=== PATIENT | female | born 1940 | race Caucasian/White ===

== ENCOUNTER 2016-11-02 08:14 | Inpatient (IN) | payer MEDICARE, OTHER ==
--- NOTE | ~2016-11-02 | CN ---
Consultation Report [facility] [address] [place]. [address] NAME: SABINA YBARRA : 40 STATUS : ADM IN PAT#: [id number] AGE: 76 ADM/REG DATE : 11/02/16 MR#: [id number] REPORT SERV DATE: 11/06/16 DICTATED BY: SEAN CALIXTO DATE: 11/06/16 REPORT STATUS : Draft TRANSCRIBED BY: MODL DATE: 11/06/16 CONSULTATION NOTE DATE OF CONSULTATION: 11/06/2016 REASON FOR CONSULTATION: Severe aortic stenosis, consideration for aortic valve replacement, either transcatheter or conventional surgical aortic valve replacement. CHIEF COMPLAINT: "I had bleeding and then got very short of breath and had to go to the hospital." HISTORY OF PRESENT ILLNESS: This is a 76-year-old white female, with known history of bright red blood per rectum on several occasions, starting in 2010. At that time, in 02/2011, she also had an echocardiogram that showed aortic stenosis with an aortic valve area of 0.8 sq cm. She was followed and has been seen by various providers for her GI bleeding since then. 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 Recently, she had recurrence of her bleeding associated with profound anemia, transfusion, and subsequent shortness of breath and symptoms of heart failure, diagnosed as high-output heart failure. She was transfused, and then readmitted to the hospital with shortness of breath. Her BNP at that time was 640 and her EKG showed normal sinus rhythm. She did have mild troponin leak. For this reason, she underwent coronary arteriogram and this did not demonstrate any significant flow-limiting coronary artery disease. It was felt that she had not had a myocardial infarction. She did have on cath significant aortic stenosis with an aortic valve area of 6-7 sq cm and peak gradient of 50 mmHg. We were asked to see for possible aortic valve replacement. The patient's , who is now , had also undergone aortic valve replacement, and suffered acute kidney injury eventually necessitating dialysis. The patient has significant anxiety about this. She had proposed possible transcatheter aortic valve replacement, but using Society of Thoracic Surgeons database, her operative mortality calculated by Dr. Meehan came to approximately 2.7%. I saw her and examined her today and talked with her about possible aortic valve replacement, both transcatheter, and surgical aortic valve replacement. PRIOR MEDICAL HISTORY: 1. GI bleeding and arteriovenous malformations. 2. Aortic stenosis. 3. Colitis. 4. Dyslipidemia. 5. Hypertension. 6. Former smoker approximately 50 years, one-half pack per day, quit three months ago. 7. She has a history of depression, anxiety, and cataracts. Consultation Report [facility] [address] [place]. [address] NAME: SABINA YBARRA : 40 STATUS : ADM IN [facility]#: [id number] AGE: 76 ADM/REG DATE : 11/02/16 MR#: [id number] REPORT SERV DATE: 11/06/16 DICTATED BY: SEAN CALIXTO DATE: 11/06/16 REPORT STATUS : Draft TRANSCRIBED BY: DAWNA DATE: 11/06/16 PRIOR SURGICAL HISTORY: Significant for hysterectomy, tonsillectomy, cataract excision and intraocular lens, right foot hammertoe correction. ALLERGIES: SIGNIFICANT FOR LEVAQUIN, WHICH CAUSES AGITATION AND ANXIETY. MEDICATIONS: Taken at home include: Elavil 25 mg p.o. at bedtime, amlodipine 5 mg p.o. daily, enteric-coated aspirin 81 mg q.72 h., atorvastatin 20 mg p.o. at bedtime, Caltrate 600 Plus D p.o. b.i.d., folic acid 400 mcg p.o. daily, pantoprazole 40 mg p.o. daily, Zoloft 50 mg p.o. daily, and iron supplement one capsule p.o. b.i.d. SOCIAL HISTORY: She is , lives alone and has two adult daughters and adult son who live fairly locally. She quit smoking approximately three months ago after smoking since age 17 up to one-half pack per day. She reports occasional mixed drinks one or two a week when out with friends. Denies any history of illicit drug use. FAMILY HISTORY: She was adopted. REVIEW OF SYSTEMS: GENERAL: Positive for declining exercise tolerance and progressive breathlessness over the past five months. ENT: Positive for cataract surgery, no issues with hearing, no issues with eating, chewing, or swallowing. RESPIRATORY: Positive for recent shortness of breath and hospitalization for same. Denies any chronic cough, wheezing, or other lung problems. CV: Positive for aortic valve stenosis, negative for palpitations, negative for syncope or near syncope, negative for chest pain, positive for lower extremity edema, which cleared with diuretic therapy. GI: Positive for AVMs, bright red blood of stool, negative for constipation or diarrhea. : Negative. MUSCULOSKELETAL: Positive for some arthritic changes and stiffness in fingers. NEUROLOGIC: Negative for stroke, TIA, syncope, tremors. HEME/ONC: Negative. ENDOCRINE: Negative for diabetes. Negative for thyroid problems. No history of blood clots or free bleeding. PHYSICAL EXAMINATION: GENERAL: She is a very pleasant, vivacious 76-year-old female, in no acute distress. VITAL SIGNS: Her height is 152.4 cm, weight 67.78 kg. Blood pressure 105/53, temperature 97.6, pulse 65 and regular, respirations 18, regular and unlabored, saturation 99% on room air. HEENT: Normocephalic, atraumatic. Hygiene is good. Pupils equal, round, reactive to light and accommodation, sclerae are clear, conjunctivae pink. Oral and buccal mucosae pink and moist, teeth in good condition. NECK: Supple. No restricted range of motion, carotid bruits versus radiated murmur are Consultation Report [facility] [id number] [place]. [address] NAME: SABINA YBARRA : 40 STATUS : ADM IN [facility]#: [id number] AGE: 76 ADM/REG DATE : 11/02/16 MR#: [id number] REPORT SERV DATE: 11/06/16 DICTATED BY: SEAN CALIXTO DATE: 11/06/16 REPORT STATUS : Draft TRANSCRIBED BY: DAWNA DATE: 11/06/16 heard. No jugular venous distention. CHEST: Clear to auscultation, no use of accessory muscles, no deformity, no chest wall tenderness. BREASTS: Not examined. CV: Regular rate and rhythm with aortic systolic murmur that is heard across the precordium, but best in the right sternal border second intercostal space. She has palpable and symmetric central and peripheral pulses. No clubbing, no cyanosis, no edema. ABDOMEN: Soft, obese, nontender with normoactive bowel sounds. No hepatosplenomegaly. MUSCULOSKELETAL: No kyphoscoliosis, no asymmetry. /RECTAL: Declined. NEUROLOGIC: She is alert and oriented to day, date, place, and situation. Speech is clear, fluent. No focal deficits. No tremors. SKIN, HAIR, AND NAILS: Good hygiene. Skin is tanned and sun damaged. DATA: Her coronary arteriogram that did not show any significant flow-limiting disease. Echocardiogram showing no other significant valvulopathy, but severe aortic stenosis. Her coronary arteriogram showed aortic valve area calculated at 0.6% to 0.7%. EKG showed normal sinus rhythm. LABORATORY DATA: Sodium is 139, potassium 4.0, chloride 104, CO2 of 30, BUN 18, creatinine 1.14. CBC shows WBCs of 5.1, hemoglobin 8.8 g, hematocrit 31.1%, and platelets 255,000. IMPRESSION: Severe aortic valve stenosis in a fairly healthy 76-year-old female. She had recent high-output heart failure, and in discussion with Dr. Meehan today, it was felt that this really was not consistent with NYHA classification of heart failure. With her recent transfusions and diuretic therapy, she now is asymptomatic and feels quite well. I talked with her today about possible aortic valve replacement either via the transcatheter route or conventional or minimally invasive sternotomy approach. Her operative mortality risk calculated by Dr. Meehan was 2.7%, which does not approach the threshold for high-risk SAVR. Therefore, we talked with her about possible conventional or minimally invasive sternotomy aortic valve replacement. We talked about the usual perioperative course, indications, benefits, and serious risks, which include things like bleeding, infection, pneumonia, blood transfusions, damage to the kidneys including kidney failure and dialysis, damage to the liver, the lungs, heart attack, stroke, abnormal heart rhythm, mediastinitis, and even . She indicates her understanding and would like to get this done and put it behind her as soon as possible and begin the process of recovery. She will need someone to be with her for the first two weeks after surgery, either staying with her or she can stay with them, and she understands that this is going to be arranged. In talking with Dr. Odonnell and Dr. Meehan, it was felt that she could safely go home, and come back to the hospital next Saturday, one week from now, for elective aortic valve replacement. This will be helpful also in reducing her surgical risk. She is agreeable to this plan. I have discussed this with Dr. Frank from the hospitalist service. We will take care of arrangements for preadmission testing and plan to proceed with elective aortic valve replacement next Saturday. We appreciate the opportunity to participate in her care. Consultation Report [facility] [id number] [place]. [address] NAME: SABINA YBARRA : 40 STATUS : ADM IN PAT#: [id number] AGE: 76 ADM/REG DATE : 11/02/16 MR#: [id number] REPORT SERV DATE: 11/06/16 DICTATED BY: SEAN CALIXTO DATE: 11/06/16 REPORT STATUS : Draft TRANSCRIBED BY: MODL DATE: 11/06/16 MSL/MODL Sean Calixto, N.P. / [id number] CC: Johnathon Frank Jr, MD Mario Mariani, M.D.
--- NOTE | ~2016-11-02 | DS ---
Discharge Summary [facility] [address] [place]. [address] NAME: SABINA YBARRA : 40 STATUS : DIS IN PAT#: [id number] AGE: 76 ADM/REG DATE : 11/02/16 MR#: [id number] REPORT SERV DATE: 11/08/16 DICTATED BY: JR. FRANK WILLIAM JOHN DATE: 11/07/16 REPORT STATUS : Draft TRANSCRIBED BY: DAWNA DATE: 11/07/16 ADMISSION DATE: 11/02/2016 DISCHARGE DATE: 11/07/2016 DISCHARGE DIAGNOSES: Include. 1. Severe aortic stenosis with an aortic valve area 0.6 cm2. 2. 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 3. Chronic anemia. 4. Diastolic dysfunction. OPERATIONS, PROCEDURES, AND TREATMENTS: Include. 1. Carotid blood flow study done 11/05/2016, which showed right and left carotids with category 1 disease. There is bilateral antegrade vertebral flow. 2. PA and lateral chest x-ray done 11/05/2016, showed no acute process. 3. Cardiac catheterization done 11/02/2016 which showed severe aortic stenosis with aortic valve area between 0.6-0.7 cm2 with a gradient of 50 mmHg. There was no angiographic evidence of epidural coronary heart disease. There was normal intracardiac filling pressures and normal pulmonary pressure. DISCHARGE MEDICATIONS: Include. 1. Elavil 25 mg at bedtime. 2. Norvasc 5 mg orally daily. 3. Aspirin 81 mg orally every 72 hours which will be held for surgery. 4. Lipitor 20 mg orally daily. 5. Calcium plus D one tablet twice a day. 6. Folate 400 mg orally daily. 7. Lasix 40 mg in the morning and 20 mg at night. 8. Protonix 40 mg daily. 9. Zoloft 50 mg orally daily. 10.Beto-Sequels 1 capsule twice a day. CONSULTING PHYSICIANS: Include Dr. Odonnell of Thoracic Surgery and Dr. Joe of Cardiology. HOSPITAL COURSE: The patient is a 76-year-old female, presented to [facility] on 11/01/2016. The patient had recently been hospitalized for GI bleed, where she was found to have severe aortic stenosis by echocardiogram and was scheduled to follow up with her primary physician anesthesiologist, Dr. Mehean, the following week. However, she re-presented to [facility] with complaint of shortness of breath and lower extremity edema. The patient was seen in consultation by Dr. Joe and recommendation was transferred to [facility] for workup of severe aortic stenosis. The patient was transferred to [facility] on 11/02/2016. She was seen in consultation by Dr. Mendoza and underwent cardiac catheterization with findings above. The patient was felt to be a candidate either for transaortic valve replacement versus traditional aortic valve replacement. She was seen in consultation by Dr. Odonnell's team and was felt to be a good candidate for traditional valve replacement. Preoperative workup including carotid flow study was performed, and the patient is scheduled for a valve replacement on Saturday of the upcoming week. The patient is comfortable with Discharge Summary [address] [place]. [address] NAME: SABINA YBARRA : 40 STATUS : DIS IN PAT#: [id number] AGE: 76 ADM/REG DATE : 11/02/16 MR#: [id number] REPORT SERV DATE: 11/08/16 DICTATED BY: JR. FRANK WILLIAM JOHN DATE: 11/07/16 REPORT STATUS : Draft TRANSCRIBED BY: DAWNA DATE: 11/07/16 this. She will be discharged on Lasix 40 mg the morning, 20 in the evening and will follow up on Saturday as scheduled. DIET: Diet will be upon 0.6 L fluid restriction. With low sodium. ACTIVITY: As tolerated. For discharge exam and laboratory, please see daily progress note. This discharge took 35 minutes for patient encounter, coordination care, and documentation. WDeonteF/DAWNA Johnathon Frank Jr, MD / [id number] CC: Johnathon Frank Jr, MD Mario Mariani, M.D.
[~2016-11-02 08:14] MED LIST: ACET500CAP PO; ALEVE220 MG PO; AMIT25 PO; AMITRIPTYLINE; ASAB PO; CALTRA600D PO; COUMADIN4 MG PO; COUMADIN6 MG PO; CYANO1000T PO; DRONED400 PO; ESTRACE1 MG PO; FERRO SEQUELS PO; FOLIC ACID400 MC1 PO; GLUCCHONDR PO; HALF81 PO; IRON PO; L20 PO; LAN25 PO; LIMBITROL1 TAB PO; LIPITOR20 PO; MULTIVITAMI1 PO; NORV5 PO; PRIN20 PO; PROTONIX PO; TOPXL100 PO; TUMSROLL PO; VITAMIN C100 MG PO; VITAMIN D1000 UNI1 PO; ZESTRIL20 MG PO; ZOCOR20 PO; ZOCOR40 PO; ZOL50 PO
[2016-11-03 05:41] LABS: BASOPHILS 0.5 %; BASOPHILS ABSOLUTE 0.03 10/3/uL (0.0-0.16); EOSINOPHILS 2.9 %; EOSINOPHILS ABSOLUTE 0.17 10/3/uL (0.0-0.53); HEMATOCRIT 27.7 % (36.0-48.0); HEMOGLOBIN 8.3 g/dL (12.0-16.0); IMMATURE GRANULOCYTES 0.2 %; IMMATURE GRANULOCYTES ABSOLUTE 0.01 10/3/uL (0.0-0.11); LYMPHOCYTES 22.1 %; LYMPHOCYTES ABSOLUTE 1.29 10/3/uL (0.67-4.30); MEAN CORPUSCULAR HEMOGLOB 24.2 pg (26.0-34.0); MEAN CORPUSCULAR VOLUME 80.8 fL (80-100); MEAN PLATELET VOLUME 9.5 fL (9.2-13.0); MONOCYTES 9.7 %; MONOCYTES ABSOLUTE 0.57 10/3/uL (0.21-1.20); NEUTROPHILS 64.6 %; NEUTROPHILS ABSOLUTE 3.78 10/3/uL (2.02-8.40); PLATELET COUNT 284 10/3/uL (150-400); RBC DISTRIBUTION WIDTH 17.7 % (12.0-16.0); RED CELL COUNT 3.43 10/6/uL (4.0-5.6); WHITE BLOOD CELLS 5.9 10/3/uL (4.5-10.5)
[2016-11-03 05:42] LABS: MANUAL DIFF NO %
[2016-11-03 05:55] LABS: A/G RATIO 0.9 (0.7-1.9); ALBUMIN 2.8 G/DL (3.5-5.0); BUN (BLOOD UREA NITROGEN) 15 MG/DL (6-23); CHLORIDE, SERUM 107 MMOL/L (96-112); CREATININE 0.97 MG/DL (0.55-1.02); GFR AFRICAN AMERICAN 66 ML/MIN (>=60); GFR NON AFRICAN AMERICAN 57 ML/MIN (>=60); GLUCOSE, SERUM 101 MG/DL (60-99); POTASSIUM, SERUM 4.2 MMOL/L (3.5-5.3); SGOT(AST) 14 U/L (5-40); SGPT(ALT) 12 U/L (5-65); SODIUM, SERUM 142 MMOL/L (135-148); TOTAL PROTEIN 5.8 G/DL (6.0-8.5)
[2016-11-03 05:57] LABS: ALKALINE PHOSPHATASE 70 U/L (45-117); CO2 (CARBON DIOXIDE) 26 MMOL/L (24-34); PHOSPHORUS, SERUM 3.6 MG/DL (2.5-4.5); TOTAL BILIRUBIN 0.3 MG/DL (0-1.2)
[2016-11-03 05:59] LABS: CALCIUM, SERUM 8.8 MG/DL (8.5-10.4)
[2016-11-04 05:04] LABS: A/G RATIO 0.9 (0.7-1.9); ALKALINE PHOSPHATASE 75 U/L (45-117); BUN (BLOOD UREA NITROGEN) 14 MG/DL (6-23); CALCIUM, SERUM 8.9 MG/DL (8.5-10.4); CHLORIDE, SERUM 107 MMOL/L (96-112); CO2 (CARBON DIOXIDE) 29 MMOL/L (24-34); CREATININE 1.12 MG/DL (0.55-1.02); GFR AFRICAN AMERICAN 55 ML/MIN (>=60); GFR NON AFRICAN AMERICAN 48 ML/MIN (>=60); GLOBULIN 3.2 G/DL (2.5-4.1); GLUCOSE, SERUM 114 MG/DL (60-99); PHOSPHORUS, SERUM 3.8 MG/DL (2.5-4.5); POTASSIUM, SERUM 3.9 MMOL/L (3.5-5.3); SGOT(AST) 16 U/L (5-40); SGPT(ALT) 12 U/L (5-65); SODIUM, SERUM 141 MMOL/L (135-148); TOTAL BILIRUBIN 0.2 MG/DL (0-1.2); TOTAL PROTEIN 6.2 G/DL (6.0-8.5)
[2016-11-05 04:58] LABS: BASOPHILS 0.5 %; BASOPHILS ABSOLUTE 0.03 10/3/uL (0.0-0.16); EOSINOPHILS 4.5 %; EOSINOPHILS ABSOLUTE 0.28 10/3/uL (0.0-0.53); HEMATOCRIT 30.8 % (36.0-48.0); HEMOGLOBIN 9.4 g/dL (12.0-16.0); IMMATURE GRANULOCYTES 0.3 %; IMMATURE GRANULOCYTES ABSOLUTE 0.02 10/3/uL (0.0-0.11); LYMPHOCYTES ABSOLUTE 1.67 10/3/uL (0.67-4.30); MANUAL DIFF NO %; MEAN CORPUS HGB CONC 30.5 g/dL (32.0-36.0); MEAN CORPUSCULAR HEMOGLOB 24.6 pg (26.0-34.0); MEAN CORPUSCULAR VOLUME 80.6 fL (80-100); MEAN PLATELET VOLUME 9.5 fL (9.2-13.0); MONOCYTES 9.9 %; MONOCYTES ABSOLUTE 0.61 10/3/uL (0.21-1.20); NEUTROPHILS 57.8 %; NEUTROPHILS ABSOLUTE 3.58 10/3/uL (2.02-8.40); PLATELET COUNT 302 10/3/uL (150-400); PROTIME (NOT ORD) 12.8 SEC (12.0-14.5); RED CELL COUNT 3.82 10/6/uL (4.0-5.6); WHITE BLOOD CELLS 6.2 10/3/uL (4.5-10.5)
[2016-11-05 05:03] LABS: BUN (BLOOD UREA NITROGEN) 17 MG/DL (6-23); CALCIUM, SERUM 8.6 MG/DL (8.5-10.4); CHLORIDE, SERUM 104 MMOL/L (96-112); CO2 (CARBON DIOXIDE) 32 MMOL/L (24-34); CREATININE 1.14 MG/DL (0.55-1.02); GFR AFRICAN AMERICAN 54 ML/MIN (>=60); GFR NON AFRICAN AMERICAN 47 ML/MIN (>=60); GLUCOSE, SERUM 119 MG/DL (60-99); POTASSIUM, SERUM 4.2 MMOL/L (3.5-5.3); SODIUM, SERUM 140 MMOL/L (135-148)
[2016-11-06 06:40] LABS: BASOPHILS 0.6 %; BASOPHILS ABSOLUTE 0.03 10/3/uL (0.0-0.16); EOSINOPHILS 4.1 %; EOSINOPHILS ABSOLUTE 0.21 10/3/uL (0.0-0.53); HEMATOCRIT 31.1 % (36.0-48.0); HEMOGLOBIN 8.8 g/dL (12.0-16.0); IMMATURE GRANULOCYTES 0.4 %; IMMATURE GRANULOCYTES ABSOLUTE 0.02 10/3/uL (0.0-0.11); LYMPHOCYTES 27.3 %; MEAN CORPUSCULAR HEMOGLOB 23.4 pg (26.0-34.0); MEAN CORPUSCULAR VOLUME 82.7 fL (80-100); MEAN PLATELET VOLUME 10.1 fL (9.2-13.0); MONOCYTES 10.5 %; MONOCYTES ABSOLUTE 0.54 10/3/uL (0.21-1.20); NEUTROPHILS 57.1 %; NEUTROPHILS ABSOLUTE 2.92 10/3/uL (2.02-8.40); PLATELET COUNT 255 10/3/uL (150-400); RBC DISTRIBUTION WIDTH 18.4 % (12.0-16.0); RED CELL COUNT 3.76 10/6/uL (4.0-5.6); WHITE BLOOD CELLS 5.1 10/3/uL (4.5-10.5)
[2016-11-06 06:42] LABS: MANUAL DIFF NO %; MEAN CORPUS HGB CONC 28.3 g/dL (32.0-36.0)
[2016-11-06 06:52] LABS: BUN (BLOOD UREA NITROGEN) 18 MG/DL (6-23); CHLORIDE, SERUM 104 MMOL/L (96-112); CO2 (CARBON DIOXIDE) 30 MMOL/L (24-34); CREATININE 1.14 MG/DL (0.55-1.02); GFR AFRICAN AMERICAN 54 ML/MIN (>=60); GFR NON AFRICAN AMERICAN 47 ML/MIN (>=60); GLUCOSE, SERUM 107 MG/DL (60-99); SODIUM, SERUM 139 MMOL/L (135-148)
[2016-11-07 04:35] LABS: BASOPHILS 0.8 %; BASOPHILS ABSOLUTE 0.05 10/3/uL (0.0-0.16); EOSINOPHILS 3.5 %; EOSINOPHILS ABSOLUTE 0.22 10/3/uL (0.0-0.53); HEMATOCRIT 32.9 % (36.0-48.0); HEMOGLOBIN 10.1 g/dL (12.0-16.0); IMMATURE GRANULOCYTES 0.2 %; IMMATURE GRANULOCYTES ABSOLUTE 0.01 10/3/uL (0.0-0.11); LYMPHOCYTES 29.4 %; LYMPHOCYTES ABSOLUTE 1.84 10/3/uL (0.67-4.30); MEAN CORPUSCULAR HEMOGLOB 24.9 pg (26.0-34.0); MEAN PLATELET VOLUME 9.7 fL (9.2-13.0); MONOCYTES 10.2 %; MONOCYTES ABSOLUTE 0.64 10/3/uL (0.21-1.20); NEUTROPHILS 55.9 %; PLATELET COUNT 329 10/3/uL (150-400); RBC DISTRIBUTION WIDTH 18.2 % (12.0-16.0); RED CELL COUNT 4.06 10/6/uL (4.0-5.6); WHITE BLOOD CELLS 6.3 10/3/uL (4.5-10.5)
[2016-11-07 04:37] LABS: MANUAL DIFF NO %; MEAN CORPUS HGB CONC 30.7 g/dL (32.0-36.0)
[2016-11-07 04:38] LABS: PROTIME (NOT ORD) 13.1 SEC (12.0-14.5)
[2016-11-07 04:53] LABS: A/G RATIO 0.9 (0.7-1.9); ALBUMIN 3.3 G/DL (3.5-5.0); ALKALINE PHOSPHATASE 79 U/L (45-117); CALCIUM, SERUM 9.1 MG/DL (8.5-10.4); CHLORIDE, SERUM 101 MMOL/L (96-112); CO2 (CARBON DIOXIDE) 30 MMOL/L (24-34); CREATININE 1.21 MG/DL (0.55-1.02); GFR AFRICAN AMERICAN 50 ML/MIN (>=60); GFR NON AFRICAN AMERICAN 43 ML/MIN (>=60); GLOBULIN 3.5 G/DL (2.5-4.1); GLUCOSE, SERUM 108 MG/DL (60-99); IRON BINDING CAPACITY 363 MCG/DL (225-410); SGOT(AST) 27 U/L (5-40); SGPT(ALT) 28 U/L (5-65); SODIUM, SERUM 138 MMOL/L (135-148); TOTAL BILIRUBIN 0.3 MG/DL (0-1.2); TOTAL PROTEIN 6.8 G/DL (6.0-8.5)
[2016-11-07 04:54] LABS: BUN (BLOOD UREA NITROGEN) 23 MG/DL (6-23)
[2016-11-07 10:39] LABS: ASCORBIC ACID (UR NOT ORDER) NEG (NEG); BILIRUBIN, URINE NEGATIVE (NEG); KETONE, URINE NEGATIVE (NEG); LEUKOCYTE ESTERASE(NOT OR MOD (NEG); WBC (NOT ORDERED) (RFLEX) 14 (0-5)
[2016-11-07] MEDS ORDERED: L20 PO (12:55)
[2016-11-07] MEDS ORDERED: K-TABS10 MEQ PO (12:56)
== END 2016-11-07 13:43 | disposition home or self-care (01) | DRG 286 ==
LOC: CORLMH 08:14 → SSU1 09:21 → 5NO 11-03 14:33
PROVIDERS: Hospitalist; Internal Medicine; Thoracic Surgery (Cardiothoracic Vascular Surgery)
PROC: B2111ZZ Fluoroscopy of Multiple Coronary Arteries using Low Osmolar Contrast (ICD-10-PCS; principal; 2016-11-02)
PROC: B2151ZZ Fluoroscopy of Left Heart using Low Osmolar Contrast (ICD-10-PCS; 2016-11-02)
PROC: 4A023N8 Measurement of Cardiac Sampling and Pressure, Bilateral, Percutaneous Approach (ICD-10-PCS; 2016-11-02)
DX: I35.0 Nonrheumatic aortic (valve) stenosis (principal); I50.31 Acute diastolic (congestive) heart failure; D64.9 Anemia, unspecified; I11.0 Hypertensive heart disease with heart failure; Z87.891 Personal history of nicotine dependence; E78.5 Hyperlipidemia, unspecified; Z90.710 Acquired absence of both cervix and uterus; Z98.49 Cataract extraction status, unspecified eye; Z96.1 Presence of intraocular lens; Z79.82 Long term (current) use of aspirin; Q27.33 Arteriovenous malformation of digestive system vessel; Z88.1 Allergy status to other antibiotic agents
CPT/HCPCS: 36415; 71020; 80048; 80053; 80061; 81001; 82550; 82803; 83036; 83550; 83735; 83880; 84100; 84484; 85025; 85027; 85347; 85610; 87077; 87086; 87186; 87641; 93005; 93460; 93880; 99152; 99153; A9270-GY; C1751; C1769; C1894; J1940; J2250; J3010; Q9967

== ENCOUNTER 2016-11-13 08:34 | Inpatient (IN) | payer MEDICARE, OTHER ==
--- NOTE | ~2016-11-13 | DS ---
Discharge Summary [facility] [address] [place]. [address] NAME: SABINA YBARRA : 40 STATUS : DIS IN PAT#: [id number] AGE: 76 ADM/REG DATE : 11/13/16 MR#: [id number] REPORT SERV DATE: 11/27/16 DICTATED BY: CORRINA ODONNELL DATE: 11/26/16 REPORT STATUS : Draft TRANSCRIBED BY: DAWNA DATE: 11/26/16 Data Collection from hospitalization DISCHARGE DIAGNOSES: 1. Aortic valve stenosis, status post aortic valve replacement. 2. Recent gastrointestinal bleed with arteriovenous malformations of the colon. 3. Chronic anemia secondary to recent gastrointestinal bleed with arteriovenous malformations of the colon. 4. Hypertension. 5. Dyslipidemia. 6. History of tobacco abuse. 7. History of depression. 8. History of colitis. CONSULTATIONS: Aneesh Meehan M.D. PROCEDURES PERFORMED: Minimally invasive aortic valve replacement using a 21 mm pericardial valve (Trifecta), internal rigid fixation of the sternum using a single large titanium ladder plate and 10 screws (12 mm), and transesophageal echocardiography on 11/13/2016. PATHOLOGY: Aortic valve leaflets valvulotomy - prominent fibrosis, myxoid degenerative changes and ectopic calcification (history of stenosis). MEDICATIONS: Cordarone 200 mg twice a day, Elavil 25 mg at bedtime, vitamin C 1000 mg daily, Lipitor 20 mg at bedtime, Caltrate plus D 600 mg twice a day, folic acid 400 mcg daily, Lopressor 12.5 mg twice a day, Percocet 5/325 one to two tablets every four hours as needed, Protonix 40 mg daily, K-Tabs 10 mEq daily, Zoloft 50 mg daily, and iron one capsule twice a day. She was instructed not to continue amlodipine, Lasix, or potassium. CONDITION AT DISCHARGE: Stable. DISPOSITION: The patient was discharged home on a low-cholesterol, low-sodium, 1800-calorie cardiac/diabetic diet with activities as instructed. She would follow up with Sean Mendoza on 01/10/[address] Aneesh Meehan on 12/13/2016. She would follow up with Dr. Sheldon Esteban 7 to 10 days following discharge. She would follow up in the [facility] as instructed and would follow up at cardiac rehab on 12/31/2016. HOSPITAL COURSE: This is a 76-year-old female who was recently brought to the hospital with shortness of breath. She had another episode of bright red blood per rectum and was profoundly anemic. She had symptoms of heart failure and shortness of breath. Echocardiogram was performed because of murmur and it demonstrated worsening aortic valve stenosis with a valve area of 0.6 cm2. The velocity across the valve was 4.2 m/sec and the peak gradient was 71 mmHg. A cardiac catheterization had demonstrated no significant coronary artery disease. It was felt that the patient would need to undergo coronary artery bypass grafting. She was admitted to the hospital at this time for further evaluation and treatment. Upon admission, she was taken to the operating room where she underwent the above-mentioned Discharge Summary [address] [address] NAME: SABINA YBARRA : 40 STATUS : DIS IN PAT#: [id number] AGE: 76 ADM/REG DATE : 11/13/16 MR#: [id number] REPORT SERV DATE: 11/27/16 DICTATED BY: CORRINA ODONNELL DATE: 11/26/16 REPORT STATUS : Draft TRANSCRIBED BY: DAWNA DATE: 11/26/16 procedure. She tolerated this well, and there were no complications. On postop day #1, she was up sitting in a chair. Her incisions looked okay. She had no edema. She was going to be transferred to the floor. On 11/15/2016, she was seen by Dr. Aneesh Meehan. She was doing well thus far. We encouraged her to increase her activity. She was in a sinus rhythm. Pacing wires were still in place. Diuresis was being performed. White count was 15.4. Roxicodone was discontinued. She did have some mild encephalopathy. Chest x-ray showed small bilateral pleural effusions and bibasilar atelectasis. She was on iron for her chronic anemia. The next day, she was feeling okay. Her chest was sore. She had mild shortness of breath. She had no palpitations. Her encephalopathy had improved. Amiodarone was continued. Aspirin was continued. Discharge planning was performed. She was receiving IV amiodarone and this was going to be discontinued. No warfarin would be given secondary to her history of GI bleed and AVM. Echocardiogram was performed. On 11/17/2016, O2 saturation was 90% on room air. She was wanting to go home. She had a brief episode of atrial fibrillation. She went back into a normal sinus rhythm. Amiodarone was increased. Discharge instructions were given. Due to her improved and stable condition, she was discharged home with the above-stated instructions. Information collected by: Ro Miranda I submit the above information as my discharge summary. MORENA/DAWNA Corrina Odonnell M.D. / [id number] CC: Marybeth Ferguson M.D. Brian Negus, M.D.
--- NOTE | ~2016-11-13 | OP ---
Record Of [place] [id number] [facility] [place]. [address] NAME: SABINA YBARRA : 40 STATUS : ADM IN PAT#: [id number] AGE: 76 ADM/REG DATE : 11/13/16 MR#: [id number] REPORT SERV DATE: 11/13/16 DICTATED BY: CORRINA ODONNELL DATE: 11/13/16 REPORT STATUS : Draft TRANSCRIBED BY: MODL DATE: 11/13/16 DATE OF PROCEDURE: 11/13/2016 PREOPERATIVE DIAGNOSES: 1. Aortic valve stenosis. 2. Recent gastrointestinal bleed with arteriovenous malformations of the colon. 3. Chronic anemia secondary to recent gastrointestinal bleed with arteriovenous malformations of the colon. 4. Hypertension. 5. Dyslipidemia. 6. Tobacco abuse history. 7. History of depression. 8. History of colitis. POSTOPERATIVE DIAGNOSES: 1. Aortic valve stenosis. 2. Recent gastrointestinal bleed with arteriovenous malformations of the colon. 3. Chronic anemia secondary to recent gastrointestinal bleed with arteriovenous malformations of the colon. 4. Hypertension. 5. Dyslipidemia. 6. Tobacco abuse history. 7. History of depression. 8. History of colitis. PROCEDURES PERFORMED: 1. Minimally invasive aortic valve replacement using a 21-mm pericardial valve (Trifecta). 2. Internal rigid fixation of the sternum using a single large titanium ladder plate and 10 screws (12 mm). 3. Transesophageal echocardiography. SURGEON: Corrina Odonnell M.D. ASSISTANTS: Gurvinder Armijo and Angie Freeman. ANESTHESIA: General with Dr. Ragland. PEOPLESOFT ADMINISTRATOR: Aneesh Meehan M.D. PRIMARY CARE: Sheldon Esteban M.D. INDICATIONS: This is a 76-year-old female who recently was brought to the hospital with shortness of breath. She had another episode of bright red blood per rectum and was profoundly anemic and admitted to the hospital because of symptoms of heart failure and shortness of breath. She had an echocardiogram performed because of murmur and this demonstrated worsening aortic valve stenosis with a valve area of 0.6 cm2. The velocity Record Of [place] [id number] [facility] [place]. [address] NAME: SABINA YBARRA : 40 STATUS : ADM IN PAT#: [id number] AGE: 76 ADM/REG DATE : 11/13/16 MR#: [id number] REPORT SERV DATE: 11/13/16 DICTATED BY: CORRINA ODONNELL DATE: 11/13/16 REPORT STATUS : Draft TRANSCRIBED BY: DAWNA DATE: 11/13/16 across the valve was 4.2 m/sec and the peak gradient of 71 mmHg. She underwent cardiac catheterization demonstrating no significant coronary artery disease. We were asked to see the patient for possible aortic valve replacement. We discussed this operation with the patient and her family, and after discussing the operations, its indication and risks, they wished to proceed. STS predicted mortality was less than 3%. Minimally invasive aortic valve replacement was offered to the patient who agreed. The patient preferred a tissue prosthesis. FINDINGS AT OPERATION: 1. Cross-clamp 59 minutes, total pump time 75 minutes. 2. The aortic valve had three leaflets. Coronary anatomy was normal. There was no sinus or root dilatation. 3. The aortic valve and annulus was heavily calcified. 4. We implanted a 21-mm pericardial valve (Trifecta). We used 12 Cor-Knots to secure the valve in place. 5. BENTON at the end of the procedure demonstrated good ventricular function with no perivalvular leak of the prosthesis. Mean gradient across the prosthesis was 5 mmHg. There was mild mitral insufficiency. 6. We used a single large titanium ladder plate and secured this into position with 12 screws. PATHOLOGIC SPECIMENS: Include the aortic valve. DESCRIPTION OF PROCEDURE: The patient was brought into the operating suite where general anesthesia was induced and airway was secured with an endotracheal tube. Lines were secured by Anesthesia and Quintanilla catheter was placed. BENTON probe was placed by Dr. Ragland and examination carried out in my attendance. Lines were passed from the field for cardiopulmonary bypass and cleared of air. A partial sternal incision was made directly over the manubrium measuring approximately 6 to 7 cm and carried through subcutaneous tissue. The clavipectoral fascia was divided from the sternal notch to the second intercostal space below the sternal notch or angle of Quinton. We transversely divided the sternum at this level and then longitudinally divided the sternum from the sternal notch down to this previous transverse division. A retractor was placed and the pericardium opened from the innominate vein to the limits of the sternal split incision. The patient was anticoagulated with heparin. The pericardium was then tacked to the side of the chest wall. Pursestring sutures were placed in the ascending aorta and right atrial appendage. Cannulation was carried out in a routine manner. A dual-stage venous cannula was placed in the right atrial appendage and secured. When all was in readiness, the patient was placed on cardiopulmonary bypass. Then, the aorta was crossclamped. Initial and only dose of cold crystalloid cardioplegia solution using Custodiol solution was administered in an antegrade fashion. Because of the patient's history of aortic insufficiency after 500 mL of the Custodiol, we did open the aorta and directly infused the remaining portion of Custodiol down both right and left main coronary Record Of [facility] [address] [facility] [place]. [address] NAME: SABINA YBARRA : 40 STATUS : ADM IN [facility]#: [id number] AGE: 76 ADM/REG DATE : 11/13/16 MR#: [id number] REPORT SERV DATE: 11/13/16 DICTATED BY: CORRINA ODONNELL DATE: 11/13/16 REPORT STATUS : Draft TRANSCRIBED BY: DAWNA DATE: 11/13/16 ostia. An LV vent was placed in the right superior pulmonary vein and directed in the left ventricle and secured. Following the first dose of cardioplegia, the [id number] aortotomy incision was created and completed. The aortic valve was inspected. As described in the findings, there were three leaflets that were heavily calcified. Coronary anatomy was normal. There was no aneurysmal formation. We excised each of the leaflets of the aortic valve and then debrided the annulus carefully of all calcific material. We then irrigated the ascending aorta and left ventricle copiously to remove any particulate matter. The valve was sized and a 21-mm pericardial valve was selected. Interrupted pledgeted sutures of 2-0 Tycron placed circumferentially about the aortic valve annulus in a horizontal mattress fashions. Pledgets were on the ventricular side. The suture was then passed through the sewing cuff of the prosthetic valve. This was lowered into position and each sutures individually secured and divided using a Cor-Knot device. A total of 12 Cor-Knots were utilized. The valve appeared to be well seated. Both right and left main coronary ostia could be seen and without obstruction. Warming was begun. The aortotomy incision was closed in a two-layer fashion with running pledgeted suture of 5-0 Prolene. The patient was placed in Trendelenburg and the left ventricle and ascending aorta de-aired. With flows on the pump reduced, the aortic cross-clamp was removed and flow was resumed. The heart resumed a slow junctional rhythm and was initially paced in an AV fashion and later paced atrially only. Ventilations were begun and when the heart demonstrated good contractility, it was allowed to fill and eject. De-airing was monitored with BENTON, and when deairing was completed, the LV vent was removed and these pursestring sutures tied. The ascending aortic vent was likewise removed and these pursestring sutures tied and reinforced. The patient was then weaned from cardiopulmonary bypass with minimal inotropic support. The venous cannulas were removed and these pursestring sutures tied. BENTON examination demonstrated continued good ventricular function. The aortic prosthesis was well seated without perivalvular leak. There was mild mitral insufficiency as seen earlier in the case. Protamine was administered by Anesthesia, and following a period of hemodynamic stability, the aortic cannula was removed and these pursestring sutures tied and reinforced. The patient continued do well and chest irrigated copiously with saline. Meticulous hemostasis was obtained. Hemasorb was placed along the cut edge of the sternum. Once hemostasis was assured, the pericardium was draped over the anterior surface of the heart and ascending aorta and tacked into position. Then, a 32-Greek chest tube was placed through the right chest wall and directed over the upper middle mediastinum. Then, the three sternal wires were placed. Two were placed in the manubrium and one in the first intercostal space below the manubrial sternal junction. The sternal wires were then twisted. A large ladder plate was then secured to the lower half of the sternum and then Record Of Operation [address] [place]. [address] NAME: SABINA YBARRA : 40 STATUS : ADM IN [facility]#: [id number] AGE: 76 ADM/REG DATE : 11/13/16 MR#: [id number] REPORT SERV DATE: 11/13/16 DICTATED BY: CORRINA ODONNELL DATE: 11/13/16 REPORT STATUS : Draft TRANSCRIBED BY: MODL DATE: 11/13/16 secured to the upper half sternum with 10 12-mm titanium screws. The wound was again irrigated with saline and the clavipectoral fascia that had been opened earlier was closed with #1 Stratafix. The subcutaneous tissue was closed with Stratafix and skin closed in a subcuticular fashion. The patient tolerated the procedure well. There were no complications. Sponge and needle counts were correct. DISPOSITION: The patient was left intubated, sedated, and transported to the intensive care unit in stable condition. CASSIDY/DAWNA Corrina Odonnell M.D. / [id number] CC: Marybeth Ferguson M.D. Brian Negus, M.D.
[~2016-11-13 08:34] MED LIST changes: +K-TABS10 MEQ PO
[2016-11-13 16:36] LABS: BE (BASE EXCESS) -4.8 MEQ/L (0 +/- 2.5); HCO3 (ACTUAL BICARBONATE) 19.1 MEQ/L (23-27); HEMOBLOGIN CONTENT 9.2 G/DL (12-16); INSTRUMENT SERIAL # 11843; METHEMOGLOBIN 0.7 % (0-3); O2 CONTENT 13.6 VOL% (18-24); PCO2 (CO2 TENSION) 31 MMHG (35-45); PO2 (O2 TENSION) 323 MMHG (79-93); pH 7.41 (7.37-7.43)
[2016-11-13 16:37] LABS: MODE SIMV; OPERATOR ID 32214; PRESSURE SUPPORT 0 cm.H2O; SAMPLE Arterial; TIDAL VOLUME 700 ML
[2016-11-13 16:54] LABS: HEMOGLOBIN 8.4 g/dL (12.0-16.0); PLATELET COUNT 237 10/3/uL (150-400)
[2016-11-13 16:55] LABS: HEMATOCRIT 27.1 % (36.0-48.0)
[2016-11-13 17:05] LABS: INTERNATIONAL NORMAL RATI 1.5 UNITS (-); PARTIAL THROMBO TIME 31.8 SEC (22.5-37.2)
[2016-11-13 17:06] LABS: BUN (BLOOD UREA NITROGEN) 17 MG/DL (6-23); CALCIUM, SERUM 8.6 MG/DL (8.5-10.4); CHLORIDE, SERUM 103 MMOL/L (96-112); CO2 (CARBON DIOXIDE) 26 MMOL/L (24-34); CREATININE 1.37 MG/DL (0.55-1.02); GFR AFRICAN AMERICAN 43 ML/MIN (>=60); GFR NON AFRICAN AMERICAN 37 ML/MIN (>=60); GLUCOSE, SERUM 117 MG/DL (60-99); POTASSIUM, SERUM 3.9 MMOL/L (3.5-5.3); SODIUM, SERUM 136 MMOL/L (135-148)
[2016-11-13 17:07] LABS: PROTIME (NOT ORD) 18.1 SEC (12.0-14.5)
[2016-11-13 17:15] LABS: WBC (NOT ORDERED) (RFLEX) 0 (0-5)
[2016-11-13 17:24] LABS: ASCORBIC ACID (UR NOT ORDER) NEG (NEG); BILIRUBIN, URINE NEGATIVE (NEG); KETONE, URINE NEGATIVE (NEG); LEUKOCYTE ESTERASE(NOT OR NEG (NEG)
[2016-11-13 20:31] LABS: CARBOXYHEMOGLOBIN 0.3 % (0-3); DEVICE NC; HCO3 (ACTUAL BICARBONATE) 23.4 MEQ/L (23-27); HEMOBLOGIN CONTENT 10.1 G/DL (12-16); INSTRUMENT SERIAL # 11843; METHEMOGLOBIN 0.4 % (0-3); O2 CONTENT 13.8 VOL% (18-24); OPERATOR ID 32193; PCO2 (CO2 TENSION) 42 MMHG (35-45); PO2 (O2 TENSION) 102 MMHG (79-93); SAMPLE Arterial; pH 7.36 (7.37-7.43)
[2016-11-13 22:20] LABS: HEMATOCRIT 27.8 % (36.0-48.0); HEMOGLOBIN 8.5 g/dL (12.0-16.0)
[2016-11-13 22:39] LABS: BUN (BLOOD UREA NITROGEN) 20 MG/DL (6-23); CALCIUM, SERUM 9.2 MG/DL (8.5-10.4); CHLORIDE, SERUM 108 MMOL/L (96-112); CO2 (CARBON DIOXIDE) 25 MMOL/L (24-34); CREATININE 1.38 MG/DL (0.55-1.02); GFR AFRICAN AMERICAN 43 ML/MIN (>=60); GFR NON AFRICAN AMERICAN 37 ML/MIN (>=60); GLUCOSE, SERUM 103 MG/DL (60-99); POTASSIUM, SERUM 4.2 MMOL/L (3.5-5.3); SODIUM, SERUM 140 MMOL/L (135-148)
[2016-11-14 03:33] LABS: BASOPHILS 0 %; EOSINOPHILS 0 %; HEMATOCRIT 27.2 % (36.0-48.0); HEMOGLOBIN 8.3 g/dL (12.0-16.0); IMMATURE GRANULOCYTES 0.2 %; IMMATURE GRANULOCYTES ABSOLUTE 0.02 10/3/uL (0.0-0.11); LYMPHOCYTES 5.1 %; LYMPHOCYTES ABSOLUTE 0.41 10/3/uL (0.67-4.30); MANUAL DIFF NO %; MEAN CORPUS HGB CONC 30.5 g/dL (32.0-36.0); MEAN CORPUSCULAR HEMOGLOB 25.4 pg (26.0-34.0); MEAN CORPUSCULAR VOLUME 83.2 fL (80-100); MEAN PLATELET VOLUME 9.4 fL (9.2-13.0); MONOCYTES 4.4 %; MONOCYTES ABSOLUTE 0.36 10/3/uL (0.21-1.20); NEUTROPHILS 90.3 %; NEUTROPHILS ABSOLUTE 7.32 10/3/uL (2.02-8.40); PLATELET COUNT 170 10/3/uL (150-400); RBC DISTRIBUTION WIDTH 18.9 % (12.0-16.0); RED CELL COUNT 3.27 10/6/uL (4.0-5.6); WHITE BLOOD CELLS 8.1 10/3/uL (4.5-10.5)
[2016-11-14 03:44] LABS: BUN (BLOOD UREA NITROGEN) 22 MG/DL (6-23); CHLORIDE, SERUM 111 MMOL/L (96-112); CO2 (CARBON DIOXIDE) 24 MMOL/L (24-34); CREATININE 1.26 MG/DL (0.55-1.02); GFR AFRICAN AMERICAN 48 ML/MIN (>=60); GFR NON AFRICAN AMERICAN 41 ML/MIN (>=60); GLUCOSE, SERUM 88 MG/DL (60-99); POTASSIUM, SERUM 4.2 MMOL/L (3.5-5.3); SODIUM, SERUM 142 MMOL/L (135-148)
[2016-11-14 18:00] LABS: HEMATOCRIT 27.5 % (36.0-48.0); HEMOGLOBIN 8.5 g/dL (12.0-16.0)
[2016-11-14 18:05] LABS: POTASSIUM, SERUM 4.7 MMOL/L (3.5-5.3)
[2016-11-15 05:09] LABS: BASOPHILS 0.1 %; BASOPHILS ABSOLUTE 0.01 10/3/uL (0.0-0.16); EOSINOPHILS 0 %; HEMATOCRIT 28.4 % (36.0-48.0); HEMOGLOBIN 8.7 g/dL (12.0-16.0); IMMATURE GRANULOCYTES 0.4 %; IMMATURE GRANULOCYTES ABSOLUTE 0.06 10/3/uL (0.0-0.11); LYMPHOCYTES 5.3 %; LYMPHOCYTES ABSOLUTE 0.81 10/3/uL (0.67-4.30); MEAN CORPUS HGB CONC 30.6 g/dL (32.0-36.0); MEAN CORPUSCULAR HEMOGLOB 25.3 pg (26.0-34.0); MEAN CORPUSCULAR VOLUME 82.6 fL (80-100); MEAN PLATELET VOLUME 9.7 fL (9.2-13.0); MONOCYTES 6.9 %; MONOCYTES ABSOLUTE 1.06 10/3/uL (0.21-1.20); NEUTROPHILS 87.3 %; NEUTROPHILS ABSOLUTE 13.45 10/3/uL (2.02-8.40); PLATELET COUNT 140 10/3/uL (150-400); RBC DISTRIBUTION WIDTH 19.1 % (12.0-16.0); RED CELL COUNT 3.44 10/6/uL (4.0-5.6)
[2016-11-15 05:12] LABS: MANUAL DIFF NO %; WHITE BLOOD CELLS 15.4 10/3/uL (4.5-10.5)
[2016-11-15 05:17] LABS: BUN (BLOOD UREA NITROGEN) 30 MG/DL (6-23); CALCIUM, SERUM 8.9 MG/DL (8.5-10.4); CHLORIDE, SERUM 103 MMOL/L (96-112); CO2 (CARBON DIOXIDE) 24 MMOL/L (24-34); CREATININE 1.33 MG/DL (0.55-1.02); GFR AFRICAN AMERICAN 45 ML/MIN (>=60); GFR NON AFRICAN AMERICAN 39 ML/MIN (>=60); GLUCOSE, SERUM 185 MG/DL (60-99); POTASSIUM, SERUM 4.9 MMOL/L (3.5-5.3); SODIUM, SERUM 133 MMOL/L (135-148)
[2016-11-16 05:25] LABS: BASOPHILS 0.2 %; BASOPHILS ABSOLUTE 0.02 10/3/uL (0.0-0.16); EOSINOPHILS 0.3 %; EOSINOPHILS ABSOLUTE 0.03 10/3/uL (0.0-0.53); HEMATOCRIT 26.8 % (36.0-48.0); HEMOGLOBIN 8.4 g/dL (12.0-16.0); IMMATURE GRANULOCYTES 0.7 %; IMMATURE GRANULOCYTES ABSOLUTE 0.07 10/3/uL (0.0-0.11); LYMPHOCYTES ABSOLUTE 1.17 10/3/uL (0.67-4.30); MEAN CORPUS HGB CONC 31.3 g/dL (32.0-36.0); MEAN CORPUSCULAR HEMOGLOB 25.5 pg (26.0-34.0); MEAN CORPUSCULAR VOLUME 81.5 fL (80-100); MEAN PLATELET VOLUME 9.8 fL (9.2-13.0); MONOCYTES 10.2 %; MONOCYTES ABSOLUTE 0.99 10/3/uL (0.21-1.20); NEUTROPHILS 76.6 %; NEUTROPHILS ABSOLUTE 7.45 10/3/uL (2.02-8.40); PLATELET COUNT 125 10/3/uL (150-400); RED CELL COUNT 3.29 10/6/uL (4.0-5.6); WHITE BLOOD CELLS 9.7 10/3/uL (4.5-10.5)
[2016-11-16 05:27] LABS: MANUAL DIFF NO %
[2016-11-16 05:44] LABS: CALCIUM, SERUM 8.7 MG/DL (8.5-10.4); CHLORIDE, SERUM 100 MMOL/L (96-112); GFR AFRICAN AMERICAN 56 ML/MIN (>=60); GFR NON AFRICAN AMERICAN 49 ML/MIN (>=60); SODIUM, SERUM 134 MMOL/L (135-148)
[2016-11-16 05:45] LABS: BUN (BLOOD UREA NITROGEN) 26 MG/DL (6-23); CO2 (CARBON DIOXIDE) 30 MMOL/L (24-34); GLUCOSE, SERUM 145 MG/DL (60-99); POTASSIUM, SERUM 3.6 MMOL/L (3.5-5.3)
[2016-11-17 06:07] LABS: BASOPHILS 0.1 %; BASOPHILS ABSOLUTE 0.01 10/3/uL (0.0-0.16); EOSINOPHILS 0.2 %; EOSINOPHILS ABSOLUTE 0.02 10/3/uL (0.0-0.53); HEMATOCRIT 28.5 % (36.0-48.0); HEMOGLOBIN 8.9 g/dL (12.0-16.0); IMMATURE GRANULOCYTES 0.5 %; IMMATURE GRANULOCYTES ABSOLUTE 0.05 10/3/uL (0.0-0.11); LYMPHOCYTES 11.3 %; LYMPHOCYTES ABSOLUTE 1.03 10/3/uL (0.67-4.30); MEAN CORPUS HGB CONC 31.2 g/dL (32.0-36.0); MEAN CORPUSCULAR HEMOGLOB 25.4 pg (26.0-34.0); MEAN CORPUSCULAR VOLUME 81.4 fL (80-100); MEAN PLATELET VOLUME 9.9 fL (9.2-13.0); MONOCYTES 9.3 %; MONOCYTES ABSOLUTE 0.85 10/3/uL (0.21-1.20); NEUTROPHILS 78.6 %; NEUTROPHILS ABSOLUTE 7.16 10/3/uL (2.02-8.40); PLATELET COUNT 151 10/3/uL (150-400); RBC DISTRIBUTION WIDTH 18.7 % (12.0-16.0); WHITE BLOOD CELLS 9.1 10/3/uL (4.5-10.5)
[2016-11-17 06:13] LABS: MANUAL DIFF NO %
[2016-11-17 06:30] LABS: CALCIUM, SERUM 9.2 MG/DL (8.5-10.4); CHLORIDE, SERUM 99 MMOL/L (96-112); CO2 (CARBON DIOXIDE) 33 MMOL/L (24-34); CREATININE 0.89 MG/DL (0.55-1.02); GFR AFRICAN AMERICAN 73 ML/MIN (>=60); GFR NON AFRICAN AMERICAN 63 ML/MIN (>=60); GLUCOSE, SERUM 122 MG/DL (60-99); POTASSIUM, SERUM 3.2 MMOL/L (3.5-5.3); SODIUM, SERUM 139 MMOL/L (135-148)
[2016-11-17 06:32] LABS: BUN (BLOOD UREA NITROGEN) 18 MG/DL (6-23)
[2016-11-17] MEDS ORDERED: VITC500 PO (15:08)
[2016-11-17] MEDS ORDERED: PCET PO (15:18)
[2016-11-17] MEDS ORDERED: CORDARONE PO (15:18)
[2016-11-17] MEDS ORDERED: LOP25 PO ×2 (15:20→15:21)
== END 2016-11-17 16:21 | disposition home or self-care (01) | DRG 219 ==
LOC: SDC/OF 08:34 → CVICU 16:40 → 5NO 11-14 14:12
PROVIDERS: Thoracic Surgery (Cardiothoracic Vascular Surgery)
PROC: B246ZZ4 Ultrasonography of Right and Left Heart, Transesophageal (ICD-10-PCS; 2016-11-13)
PROC: 02RF08Z Replacement of Aortic Valve with Zooplastic Tissue, Open Approach (ICD-10-PCS; principal; 2016-11-13 13:00)
PROC: 0PH000Z Insertion of Rigid Plate Internal Fixation Device into Sternum, Open Approach (ICD-10-PCS; 2016-11-13 13:00)
PROC: 5A1221Z Performance of Cardiac Output, Continuous (ICD-10-PCS; 2016-11-13 13:00)
DX: I35.0 Nonrheumatic aortic (valve) stenosis (principal); G92 Toxic encephalopathy; J90 Pleural effusion, not elsewhere classified; I48.91 Unspecified atrial fibrillation; J98.11 Atelectasis; I97.89 Other postprocedural complications and disorders of the circulatory system, not elsewhere classified; D50.0 Iron deficiency anemia secondary to blood loss (chronic); I10 Essential (primary) hypertension; E78.5 Hyperlipidemia, unspecified; Z87.891 Personal history of nicotine dependence; F32.9 Major depressive disorder, single episode, unspecified; Q27.33 Arteriovenous malformation of digestive system vessel; D64.9 Anemia, unspecified
CPT/HCPCS: 36415; 71010; 71020; 80048; 81001; 82330; 82803; 82805; 82947; 82962; 83735; 84132; 84295; 85014; 85018; 85025; 85049; 85347; 85610; 85730; 86850; 86900; 86901; 86920; 88305; 93005; 93306; 93312; 93320; 93325; 94002; 94640; 94660; 94770; A9270-GY; C1713; C1751; C1769; C1894; J0282; J0690; J1644; J2150; J2250; J2370; J2405; J2720; J2795; J2930; J3010; J3475; P9045; P9047